=== PATIENT | female | born 1960 | race Caucasian/White ===

== ENCOUNTER 2018-07-28 18:53 | Emergency (ER) | payer MEDICAID ==
[~2018-07-28] VITALS: Ht 165.1 cm; Wt 62.0 kg
[2018-07-28 19:03] VITALS: BP 143/69
[2018-07-28] MEDS ORDERED: naproxen 500mg tablet PO ONE (21:00)
[2018-07-28] MEDS ORDERED: HYDROcodone/acetaminophen 10/325mg tab PO ONE (21:00)
[2018-07-28] MEDS ORDERED: sulfamethoxazole/trimethoprim DS (800/160mg) tablet PO ONE (21:00)
[2018-07-28] MEDS ORDERED: HYDR-4383 PO (21:01)
[2018-07-28] MEDS ORDERED: NAPR-56 PO (21:01)
[2018-07-28] MEDS ORDERED: SULF1TAB48 PO (21:01)
== END 2018-07-28 21:36 | disposition home or self-care (01) ==
LOC: ER 18:54
DX: S62.101A Fracture of unspecified carpal bone, right wrist, initial encounter for closed fracture (principal); F17.200 Nicotine dependence, unspecified, uncomplicated; Z98.890 Other specified postprocedural states; Z88.0 Allergy status to penicillin; Z79.2 Long term (current) use of antibiotics; Z79.899 Other long term (current) drug therapy; W18.39XA Other fall on same level, initial encounter; Y93.89 Activity, other specified; Y92.89 Other specified places as the place of occurrence of the external cause; Y99.8 Other external cause status
CPT/HCPCS: 29125; 73110; 99284

== ENCOUNTER 2018-08-06 14:37 | Emergency (ER) | payer MEDICAID, OTHER ==
[~2018-08-06] VITALS: Ht 165.1 cm; Wt 63.6 kg
[~2018-08-06 14:37] MED LIST: HYDR-4383 PO; NAPR-56 PO
[2018-08-06 14:49] VITALS: BP 127/82
[2018-08-06] MEDS ORDERED: LIDOcaine 1.5% w/epinephrine 1:200,000 5ml ampul IJ ONE (15:50)
[2018-08-06] MEDS ORDERED: LIDOcaine 1% w/epiNEPHrine 1:200,000 30ml vial IJ ONE (15:55)
[2018-08-06] MEDS ORDERED: SULF1TAB49 PO (16:22)
== END 2018-08-06 17:02 | disposition home or self-care (01) ==
LOC: ER 14:38
DX: S62.101D Fracture of unspecified carpal bone, right wrist, subsequent encounter for fracture with routine healing (principal); L02.413 Cutaneous abscess of right upper limb; Z88.0 Allergy status to penicillin; Z79.899 Other long term (current) drug therapy; Z98.890 Other specified postprocedural states; W18.39XD Other fall on same level, subsequent encounter
CPT/HCPCS: 10060; 99283; J3490